=== PATIENT | female | born 2000 | race Caucasian/White ===

== ENCOUNTER 2023-06-26 12:39 | Emergency (ER) | payer OTHER ==
[~2023-06-26] VITALS: Ht 172.7 cm; Wt 63.5 kg
[2023-06-26 12:39] VITALS: BP 133/86
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
[2023-06-26] MEDS ORDERED: Tetanus/Diphtheria/Pertussis (Acell) ADULT Vaccine 0.5 ML IM ONE (13:00)
--- NOTE | 2023-06-26 13:28 | Diagnostic Imaging Report ---
EXAMINATION: Left ankle 3 views HISTORY: Ankle pain COMPARISON: None available. FINDINGS: The alignment is normal. No fracture is seen. The mortise is intact. Talar dome is normal. Joint spaces are normal. IMPRESSION: 1. No fracture. Dictated by: Dictated on workstation # [id number]
--- NOTE | 2023-06-26 13:28 | Diagnostic Imaging Report ---
EXAMINATION: Left foot 3 views HISTORY: Foot pain COMPARISON: None available. FINDINGS: The alignment is normal. No fracture is seen. The mortise is intact. Talar dome is normal. Joint spaces are normal. IMPRESSION: 1. No fracture. Dictated by: Dictated on workstation # [id number]
== END 2023-06-26 14:02 | disposition home or self-care (01) ==
LOC: ER 12:42
DX: S91.322A Laceration with foreign body, left foot, initial encounter (principal); S93.402A Sprain of unspecified ligament of left ankle, initial encounter; Z23 Encounter for immunization; Z28.310 Unvaccinated for COVID-19; V89.2XXA Person injured in unspecified motor-vehicle accident, traffic, initial encounter; Y93.9 Activity, unspecified; Y92.410 Unspecified street and highway as the place of occurrence of the external cause
CPT/HCPCS: 73610; 73630; 90715; 99283